=== PATIENT | female | born 1975 | race Caucasian/White ===

== ENCOUNTER 2017-04-12 08:20 | Emergency (ER) | payer OTHER ==
[~2017-04-12] VITALS: Ht 162.6 cm; Wt 90.3 kg
[2017-04-12 08:33] VITALS: Ht 162.6 cm; Wt 90.3 kg
[2017-04-12 09:56] VITALS: BP 108/72
== END 2017-04-12 09:56 | disposition home or self-care (01) ==
LOC: ED 08:20
DX: J20.8 Acute bronchitis due to other specified organisms (principal); M79.1 Myalgia; R11.10 Vomiting, unspecified; G43.909 Migraine, unspecified, not intractable, without status migrainosus; Z88.9 Allergy status to unspecified drugs, medicaments and biological substances
CPT/HCPCS: 87804; J1885

== ENCOUNTER 2017-11-08 13:23 | Emergency (ER) | payer OTHER ==
[~2017-11-08] VITALS: Ht 162.6 cm; Wt 90.3 kg
[2017-11-08 13:40] VITALS: Ht 162.6 cm; Wt 90.3 kg
[2017-11-08 17:10] VITALS: BP 142/75
== END 2017-11-08 17:10 | disposition home or self-care (01) ==
LOC: ED 13:23
DX: J02.0 Streptococcal pharyngitis (principal); G43.909 Migraine, unspecified, not intractable, without status migrainosus; Z88.8 Allergy status to other drugs, medicaments and biological substances

== ENCOUNTER 2017-11-10 14:53 | Emergency (ER) | payer OTHER ==
[~2017-11-10] VITALS: Ht 157.5 cm; Wt 102.1 kg
[2017-11-10 20:52] VITALS: BP 107/74
== END 2017-11-10 20:52 | disposition home or self-care (01) ==
LOC: ED 14:53
DX: J02.9 Acute pharyngitis, unspecified (principal); G43.909 Migraine, unspecified, not intractable, without status migrainosus
CPT/HCPCS: 86308; J1885

== ENCOUNTER 2018-07-01 23:19 | Emergency (ER) | payer OTHER ==
[~2018-07-01] VITALS: Ht 162.6 cm; Wt 93.9 kg
[2018-07-01 23:22] VITALS: Ht 162.6 cm; Wt 93.9 kg
[2018-07-02 01:10] VITALS: BP 121/92
== END 2018-07-02 01:10 | disposition home or self-care (01) ==
LOC: ED 23:19
DX: J06.9 Acute upper respiratory infection, unspecified (principal); G43.909 Migraine, unspecified, not intractable, without status migrainosus; Z88.8 Allergy status to other drugs, medicaments and biological substances; Z90.710 Acquired absence of both cervix and uterus
CPT/HCPCS: J7613

== ENCOUNTER 2019-09-18 22:43 | Emergency (ER) | payer OTHER ==
[~2019-09-18] VITALS: Ht 162.6 cm; Wt 97.5 kg
[2019-09-18 23:00] VITALS: Ht 162.6 cm; Wt 97.5 kg
[2019-09-18 23:59] VITALS: BP 125/76
== END 2019-09-18 23:59 | disposition home or self-care (01) ==
LOC: ED 22:43
DX: L03.115 Cellulitis of right lower limb (principal); G43.909 Migraine, unspecified, not intractable, without status migrainosus; Z90.710 Acquired absence of both cervix and uterus; Z98.890 Other specified postprocedural states; Z88.8 Allergy status to other drugs, medicaments and biological substances; Z20.828 Contact with and (suspected) exposure to other viral communicable diseases
CPT/HCPCS: J0696